=== PATIENT | female | born 1955 | race Caucasian/White ===

== ENCOUNTER → 2019-12-15 13:23 | Outpatient (CLI) | payer OTHER, SELFPAY ==
--- NOTE | ~2019-12-15 | MR_ITS ---
EXAMINATION: MR shoulder LT w con DATE: 12/15/2019 16:10 INDICATION: Rotator cuff syndrome presenting with left shoulder pain and limited range of motion. TECHNIQUE: Magnetic resonance imaging (MRI) of the left shoulder was performed following intra-artic ular gadolinium contrast injection and without intravenous contrast. Details of the glenohumeral join t injection have been dictated separately. Sequences included axial T2-weighted FS FSE, axial T1-celsa ghted FS FSE, coronal oblique T1-weighted FS FSE, coronal oblique T2-weighted FSE, sagittal T2-weight ed FS FSE, sagittal T1-weighted FSE, and ABER (abduction external rotation) T1-weighted FS FSE. COMPARISON: None. FINDINGS: Coracoacromial arch: The acromion undersurface is curved in morphology (type II). Small anterior subacromial spur at the a cromial attachment of the coracoacromial ligament which is mildly thickened at its acromial attachmen t. Mild acromioclavicular osteoarthritis. Rotator cuff: Complete full-thickness tear of the supraspinatus and infraspinatus tendons. The tear measures approx imately 4 cm AP along the superior and middle facet footplates. A small portion of the posterior infr aspinatus tendon remains attached to the footplate. 1.8 cm maximal medial retraction of the tear jontahan in which is positioned at the level of the apex of the humeral head. Mild tendinopathy of the distal 1.5 cm of the retracted supraspinatus tear margin. Moderate to severe tendinopathy with longitudinal split tear extending up to 3.5 cm medially from the infraspinatus tear margin. The teres minor tendon is normal. Mild subscapularis tendinopathy without discrete tear or there is relatively mild fatty a trophy of the supraspinatus and infraspinatus muscle bellies. Biceps tendon and glenoid labrum and glenohumeral cartilage: Complete tear of the long head biceps tendon with lax appearance to the intra-articular portion of th e tendon and with retraction of the distal portion of the tendon to the level of the inferior aspect of the intertubercular groove. Small tear at the posterior superior aspect of the glenoid labrum. The re is deep chondral ulceration with mild underlying subarticular cystic change at the inferior aspect of the glenoid. A severe partial thickness cartilage loss along the inferomedial aspect of the humer al head. Fluid: There is extension of the injected contrast through the full-thickness rotator cuff tear into the sub acromial/subdeltoid bursa. No loose osteochondral bodies. Bones: Normal marrow signal with no edema, fracture or abnormal marrow replacing process. Mild cystic and al jamie the middle facet of the greater tuberosity. IMPRESSION: 1. Complete full-thickness tear of the supraspinatus and infraspinatus tendons. 2. Small tear at the posterior superior glenoid labrum. 3. Mild glenohumeral osteoarthritis with small regions of high-grade chondromalacia at the inferior g lenoid. 4. Complete tear near the junction of the intra-articular and extra articular portions of the long he ad biceps tendon. Reviewed, dictated and finalized at location A. 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 Complete full-thickness tear of the supraspinatus and infraspinatus tendons. 2. Small tear at the posterior superior glenoid labrum. 3. Mild glenohumeral osteoarthritis with small regions of high-grade chondromal acia at the inferior glenoid. 4. Complete tear near the junction of the intra-articular and extra articular p ortions of the long head biceps tendon.
--- NOTE | ~2019-12-15 | XR_ITS ---
XR fl inj shoulder LT - MR/CT DATE: 12/15/2019 14:42 INDICATION: Intra-articular injection 4 MRI left shoulder examination. Left shoulder pain. Rotator cu ff and labral abnormalities. TECHNIQUE: The purpose of the procedure, technique and potential competitions were discussed with the patient. The patient verbalized understanding and gave consent. Timeout procedure confirmed proper patient and proper extremity. With the patient recumbent on the fluoroscopy table, the appropriate site at the anterior left should er for percutaneous access to the glenohumeral joint was marked using fluoroscopic guidance. The skin was prepared with sterile Betadine solution. Sterile drape was applied. 1% lidocaine local anestheti c was administered to the skin and underlying subcutaneous tissues. A 20-gauge spinal needle was intr oduced into the gleno humeral joint space using fluoroscopic guidance. 12 cc of contrast material (Mu ltiHance and Omnipaque 240) and lidocaine were injected into the joint uneventfully under fluoroscopi c visualization, confirming intra-articular position of the injection. A spot fluoroscopic exposure w as made to confirm the intra-articular position of the contrast material. The patient was very cooperative and tolerated procedure without complaint or apparent complication. IMPRESSION: Fluoroscopically guided percutaneous intra-articular injection of MultiHance contrast mat erial for MRI left shoulder examination Reviewed, dictated and finalized at Location A. Reviewed, dictated and finalized at location B. 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
== END ==
PROVIDERS: PCP Family Medicine; Visit Provider Chiropractor
DX: S43.492A Other sprain of left shoulder joint, initial encounter (principal); X58.XXXA Exposure to other specified factors, initial encounter; M19.012 Primary osteoarthritis, left shoulder
CPT/HCPCS: 23350; 73222; 77002; A9577; Q9966

== ENCOUNTER 2021-09-11 10:39 | Outpatient (CLI) | payer MEDICARE, SELFPAY ==
--- NOTE | ~2021-09-11 | XR_ITS ---
EXAMINATION: XR knee LT min 4V DATE: 09/11/2021 11:12 INDICATION: Left knee pain TECHNIQUE: Four views of the left knee were obtained. COMPARISON: None. FINDINGS: Alignment is normal. No fracture or osteochondral lesion. There is tricompartmental osteoar thritis, severe in the medial compartment. There is chondrocalcinosis of the menisci. No joint effusi on/synovitis. Calcified atherosclerosis is noted. IMPRESSION: 1. Tricompartmental osteoarthritis, severe in the medial compartment. Reviewed, dictated and finalized at location B.
== END 2021-09-11 10:40 | disposition home or self-care (01) ==
LOC: ANHIMG 10:48
PROVIDERS: PCP Family Medicine; Visit Provider Family Medicine
DX: M17.12 Unilateral primary osteoarthritis, left knee (principal)
CPT/HCPCS: 73564

== ENCOUNTER 2023-05-26 15:36 | Outpatient (CLI) | payer MEDICARE, SELFPAY ==
--- NOTE | ~2023-05-26 | MM_ITS ---
EXAMINATION: MM screening rustam BI w benjamin HISTORY: Screening TECHNIQUE: Craniocaudal and mediolateral oblique 3-D tomosynthesis images were obtained and synthetic 2-D images were generated. CAD analysis was submitted and interpreted. COMPARISON: No prior mammogram is available for comparison at this institution. BREAST PARENCHYMAL COMPOSITION: There are scattered areas of fibroglandular density. FINDINGS: There are multiple nodular asymmetries of the right breast. There is no evidence of suspici ous mass, calcification, or architectural distortion to suggest malignancy in the left breast. IMPRESSION: 1. Nodular asymmetries of the right breast. 2. Additional mammographic views and possible breast ultrasound are recommended. BI-RADS Category 0: Incomplete: Needs additional imaging evaluation. Reviewed, dictated and finalized at location A. IMPRESSION: 1. Nodular asymmetries of the right breast. 2. Additional mammographic views and possible breast ultrasound are recommended . BI-RADS Category 0: Incomplete: Needs additional imaging evaluation.
== END 2023-05-26 15:37 | disposition home or self-care (01) ==
PROVIDERS: PCP Family Medicine; Visit Provider Family Medicine
DX: Z12.31 Encounter for screening mammogram for malignant neoplasm of breast (principal); R92.8 Other abnormal and inconclusive findings on diagnostic imaging of breast
CPT/HCPCS: 77063; 77067

== ENCOUNTER 2023-09-03 01:35 | Day surgery (SDC) | payer MEDICARE, SELFPAY ==
[2023-08-21 13:07] VITALS: BMI 48.2
--- NOTE | 2023-09-02 15:17 | PM.HPGS ---
History of Present Illness History of Present Illness Consent: Risks, benefits, and alternatives have been discussed and questions answered. Patient agrees to proceed with procedure. Chief complaint: Personal hx of colonic polyps Narrative: Leslie Reina is a 68 year old female Referred for colon cancer screening. Review of Systems Review of Systems: All systems reviewed & are unremarkable except as noted in HPI and below PMFSH Past Medical History Medical History Abnormal fasting glucose Glucose 99 with hemoglobin A1c 5.8 on 04/18/2022. Fasting glucose 88 with hemoglobin A1c 5.6 on 04/30/2023. Abnormal mammogram of right breast (05/26/23) multiple nodular densities right breast on mammogram 05/26/2023. Actinic keratosis (~08/2023) treated by Dermatology August,. Acute non-recurrent maxillary sinusitis Benign paroxysmal positional vertigo due to bilateral vestibular disorder Body mass index (bmi) 60.0-69.9, adult (05/03/19) Body mass index (BMI) of 50.0 to 59.9 in adult Breast cancer screening by mammogram Candidiasis, intertrigo Chronic left shoulder pain Chronic neck pain Chronic pain of left knee (~07/2021) COVID-19 (~08/2020) COVID-19 (10/31/21) 2nd episode of COVID with positive test on 11/01/2021 Degenerative arthritis of knee, bilateral Elevated liver enzymes GGT 54, AST 41, ALT 49 on 04/18/2022. GGT elevated at 81 with AST 48 and ALT 65 on 04/11/2021. GGT 54, AST 41, ALT 49 on 04/18/2022. GGT 31, AST 55, ALT 54 on 04/30/2023. Fatty liver Insomnia Morbid obesity with BMI of 45.0-49.9, adult Morbid obesity with BMI of 50.0-59.9, adult Neoplasm of skin 2 crusted inflamed skin lesions face left christianity and right maxillary Osteoarthritis of left knee Personal history of colonic polyps Restless legs syndrome Situational depression UTI (urinary tract infection) Welcome to Medicare preventive visit Surgical History Surgical History History of oral surgery History of recent surgery Family History Family History Grandparent Diabetes mellitus, Onset Age: 67 Acute myocardial infarction, Onset Age: 58 Cerebrovascular accident, Onset Age: 68 Carcinoma of colon Family history of Alzheimer's disease, Onset Age: 95 Mother Hypertension, Onset Age: 79 Family history of chronic obstructive pulmonary disease Family history of dementia Social History Social History Smoking status: Never smoker Alcohol intake: never Substance use: never Substance use type: does not use Lack of Transportation: No Lack of Food: Never True Current Housing: I Have Housing Concerned About Future Housing: No Difficulty Paying Gas/Electric Bills: No Difficulty Paying for Meds: No Currently Unemployed: No Education: Master's Degree or Higher Difficulty w/ Childcare or Family Care: No Living arrangements: with family Occupation/Education: occupation 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- [employer] Gender identity (if verbalized by the patient): Female Meds Home Medications and Allergies Home Medications Medication Instructions Recorded Confirmed Type cholecalciferol (vitamin D3) 25 25 mcg PO DAILY 10/01/21 09/03/23 History mcg (1,000 unit) capsule glucosamine 500 mg-msm 100 mg-vit 1 cap PO DAILY 10/01/21 09/03/23 History C 20 sy-vullz-lccx-primrose capsule (Joint Support Complex) vitamin B complex (B 1 tablet PO DAILY 10/01/21 09/03/23 History Complex-Vitamin B12 tablet) naproxen sodium 220 mg capsule 220 mg PO BID PRN Pain 08/20/22 09/03/23 History (Aleve) tumeric 100 mg-keith 150 mg-olive 1 cap PO DAILY 12/31/22 08/21/23 History 50 mg-oreg 150 mg-caprylate capsule Allergies Allergy/AdvReac Type S
[2023-09-03 06:46] VITALS: BP 151/84; PULSE 72; RESP 20; TEMP 36.4; O2SAT 97; BMI 48.2
[2023-09-03] MEDS: LACTATED RINGERS 1,000 ML 150 ML IV CONT (06:49)
--- NOTE | 2023-09-03 07:29 | WPDANESEPPF ---
Anes - Initial Pre Proc Eval Procedure: Operation Date: 09/03/23 08:00 Proposed Procedures p Colonoscopy - Jonathan Newell MD Date/Time: 09/03/23 07:29 Surgeon: Jonathan Newell MD Pre Op Diagnosis: Personal hx of colonic polyps Patient Data Age: 68 Gender: F Height: 1.55 m Weight: 115.8 kg Last Vital Signs Temp 97.6 F 09/03/23 06:46 Pulse 72 09/03/23 06:46 Resp 20 09/03/23 06:46 BP 151/84 H 09/03/23 06:46 Pulse Ox 97 09/03/23 06:46 Allergies Allergy/AdvReac Type Severity Reaction Status Date / Time No Known Allergies Allergy Verified 09/03/23 06:43 Home Medications Medication Instructions Recorded Confirmed Type cholecalciferol (vitamin D3) 25 25 mcg PO DAILY 10/01/21 09/03/23 History mcg (1,000 unit) capsule glucosamine 500 mg-msm 100 mg-vit 1 cap PO DAILY 10/01/21 09/03/23 History C 20 kh-kxwuc-zlyg-primrose capsule (Joint Support Complex) vitamin B complex (B 1 tablet PO DAILY 10/01/21 09/03/23 History Complex-Vitamin B12 tablet) naproxen sodium 220 mg capsule 220 mg PO BID PRN Pain 08/20/22 09/03/23 History (Aleve) tumeric 100 mg-keith 150 mg-olive 1 cap PO DAILY 12/31/22 08/21/23 History 50 mg-oreg 150 mg-caprylate capsule Patient hx anesthesia problems: none Family hx anesthesia problems: none Results Review: All pre-operative results and documents have been reviewed as part of the pre-operative evaluation. [facility] Past Medical History Medical History (Updated 08/24/23 @ 10:38 by Brown Madrigal MD) Abnormal fasting glucose Glucose 99 with hemoglobin A1c 5.8 on 04/18/2022. Fasting glucose 88 with hemoglobin A1c 5.6 on 04/30/2023. Abnormal mammogram of right breast (05/26/23) multiple nodular densities right breast on mammogram 05/26/2023. Actinic keratosis (~08/2023) treated by Dermatology August,. Acute non-recurrent maxillary sinusitis Benign paroxysmal positional vertigo due to bilateral vestibular disorder Body mass index (bmi) 60.0-69.9, adult (05/03/19) Body mass index (BMI) of 50.0 to 59.9 in adult Breast cancer screening by mammogram Candidiasis, intertrigo Chronic left shoulder pain Chronic neck pain Chronic pain of left knee (~07/2021) COVID-19 (~08/2020) COVID-19 (10/31/21) 2nd episode of COVID with positive test on 11/01/2021 Degenerative arthritis of knee, bilateral Elevated liver enzymes GGT 54, AST 41, ALT 49 on 04/18/2022. GGT elevated at 81 with AST 48 and ALT 65 on 04/11/2021. GGT 54, AST 41, ALT 49 on 04/18/2022. GGT 31, AST 55, ALT 54 on 04/30/2023. Fatty liver Insomnia Morbid obesity with BMI of 45.0-49.9, adult Morbid obesity with BMI of 50.0-59.9, adult Neoplasm of skin 2 crusted inflamed skin lesions face left restorationist and right maxillary Osteoarthritis of left knee Personal history of colonic polyps Restless legs syndrome Situational depression UTI (urinary tract infection) Welcome to Medicare preventive visit Surgical History Surgical History History of oral surgery History of recent surgery Family History Family History Grandparent Diabetes mellitus, Onset Age: 67 Acute myocardial infarction, Onset Age: 58 Cerebrovascular accident, Onset Age: 68 Carcinoma of colon Family history of Alzheimer's disease, Onset Age: 95 Mother Hypertension, Onset Age: 79 Family history of chronic obstructive pulmonary disease Family history of dementia Social History Social History Smoking status: Never smoker Alcohol intake: never Substance use: never Substance use type: does not use Lack of Transportation: No Lack of Food: Never True Current Housing: I Have Housing Concerned About Future Housing: No Difficulty Paying Gas/Electric Bills: No Difficulty Paying for Meds: No Currently Unemployed: No
[2023-09-03 07:53] VITALS: BP 93/56; PULSE 81; RESP 23; O2SAT 95
[2023-09-03 08:03] VITALS: BP 109/71; PULSE 79; RESP 37; O2SAT 98
[2023-09-03 08:13] VITALS: BP 114/63; PULSE 69; RESP 14; O2SAT 100
== END 2023-09-03 08:25 | disposition home or self-care (01) ==
PROVIDERS: PCP Family Medicine; Visit Provider Internal Medicine Gastroenterology
PROC: 0DJD8ZZ Inspection of Lower Intestinal Tract, Via Natural or Artificial Opening Endoscopic (ICD-10-PCS; CPT 45378; principal; 2023-09-03 08:00)
DX: Z12.11 Encounter for screening for malignant neoplasm of colon (principal); K57.30 Diverticulosis of large intestine without perforation or abscess without bleeding; Z86.010 Personal history of colon polyps; E66.01 Morbid (severe) obesity due to excess calories; Z68.42 Body mass index [BMI] 45.0-49.9, adult
CPT/HCPCS: G0105; J2704; J7120

== ENCOUNTER 2024-07-08 13:23 | Outpatient (CLI) | payer MEDICARE, SELFPAY ==
--- NOTE | 2024-07-08 14:36 | ECG_ITS ---
Test Date: 2024-07-08 14:57:02 Measurements Intervals Baxter Rate: 69 P: 37 WI: 161 QRS: 12 QRSD: 80 T: 42 QT: 390 QTc: 418 Interpretive Statements SINUS RHYTHM WITH MARKED SINUS ARRHYTHMIA No previous ECG available for comparison Electronically Signed On 07-09-2024 14:29:16 CDT by Vernon Swan M.D.
[2024-07-08 15:05] LABS: Basophils Absolute Auto 0.1 K/mm3 (0.0-0.1); Basophils Percent Auto 0.6 % (0.2-1.2); Eosinophils Absolute Auto 0.2 K/mm3 (0-0.3); Eosinophils Percent Auto 2.5 % (0-4.4); Hematocrit 41.8 % (37.0-47.0); Hemoglobin 14.1 g/dL (12.0-15.0); Immature Granulocyte Absolute 0.03 K/mm3 (0.00-0.031); Immature Granulocyte Percent A 0.4 % (0-0.5); Lymphocytes Absolute Auto 2.64 K/mm3 (0.9-3.2); Lymphocytes Percent Auto 32.9 % (18.3-44.2); Mean Corpuscular HGB Conc 33.7 g/dl (32-36); Mean Corpuscular Hemoglobin 31.5 pg (26-34); Mean Corpuscular Volume 93.5 fl (80-100); Mean Platelet Volume 11.2 fl (7.4-10.4); Monocytes Absolute Auto 0.6 K/mm3 (0.1-0.6); Monocytes Percent Auto 7.3 % (2.6-8.5); Neutrophils Absolute Auto 4.5 K/mm3 (1.3-6.7); Neutrophils Percent Auto 56.3 % (45.5-73.1); Platelet Count Result 163 k/mm3 (150-375); Red Blood Count 4.47 M/mm3 (4.2-5.4); Red Cell Distribution Width 12.2 % (11.5-14.5)
[2024-07-08 15:21] LABS: Albumin Level 4.3 g/dL (3.5-5.1); Anion Gap 9 mmol/L (4-12); Blood Urea Nitrogen 21 mg/dL (7-17); Calcium 9.8 mg/dL (8.4-10.2); Carbon Dioxide 27 mmol/L (22-30); Chloride 103 mmol/L (98-107); Estimated Glomerular Filt Rate > 60; Glucose 97 mg/dL (65-110); Potassium 4.4 mmol/L (3.4-5.0); Sodium 139 mmol/L (137-145)
[2024-07-08 15:44] LABS: Urine Cotinine NEGATIVE
== END 2024-07-08 13:24 | disposition home or self-care (01) ==
PROVIDERS: PCP Family Medicine; Visit Provider Orthopaedic Surgery
DX: Z01.818 Encounter for other preprocedural examination (principal); M17.0 Bilateral primary osteoarthritis of knee; I49.8 Other specified cardiac arrhythmias
CPT/HCPCS: 80048; 80307; 82040; 85025; 87081; 93005

== ENCOUNTER 2024-07-28 01:38 | Day surgery (SDC) | payer MEDICARE, SELFPAY ==
[2024-07-08 13:50] VITALS: BP 106/66; PULSE 74; RESP 16; TEMP 37.3; O2SAT 100; BMI 39.1
--- NOTE | 2024-07-08 14:07 | PC.NURSE ---
Report to the Outpatient Waiting Room, entrance under the green pavilion located off [facility], at time _09:30am___ on date _07/28/24. Planned Procedure Time: __11:30am .? Time changes happen often and if your time is changed the preop area will call you the afternoon before. - You and your visitor will be asked to self-screen and do not enter if you have any COVID symptoms. Please call surgeon if you need to reschedule. - A mask is optional within the hospital at this time. Patients may have clear liquids (water, carbonated beverages, clear teas, apple juice) until 3 hours prior to surgery ( 0830am) with a maximum of 20 ounces. - No food from midnight until time of surgery and no smoking Take only the following medications with a SIP of water on the morning of surgery: _ None__Tyelnol if needed for pain DO NOT STOP ANY OF YOUR OTHER PRESCRIPTION MEDICATIONS PRIOR TO SURGERY EXCEPT THE FOLLOWING Medications to discontinue per physician Hold Aleve for 7 days prior Date to take last dose___07/20/24 Hold Ozempic for 2 weeks prior to surgery per PCP instructions you already recieved- Last dose to take 07/13/24. Hold all other vitamins,supplements, probiotics and herbs 3 days prior to surgery per Anesthesia. Date to take last dose 07/24/24. Please no make-up, nail mongolian, hairspray, perfume, deodorant, or body powder the day of surgery.? No jewelry (including any body piercings) or valuables the day of surgery, leave them at home.? Please take a shower or bath the night before, or the morning of, surgery with an antibacterial soap.? Wear comfortable, loose fitting clothing.? Children are encouraged to wear pajamas. - Jewelry must be removed prior to entering the operating room.? Rings and piercings that are not removed may be cut off. - The hospital will not accept responsibility for valuables.? - Please leave all valuables, including medications, at home the day of surgery. If you are going home after surgery, a licensed vacuum truck driver must drive you home.? - NO public transportation without another adult if you receive anesthesia. - We recommend that an adult stay with you for 24 hours following discharge. - We also recommend that you do not drive, make important decision, drink alcoholic beverages, or take any drugs that were not prescribed by your health care provider for at least 24 hours after your discharge time. Follow any additional instructions given to you from your surgeon. Telephone instructions given to __patient____and asked if any additional questions and then verbalized understanding. Patient advised to call surgeon office or pre surgery nurse liaison [phone] if any additional questions.
--- NOTE | 2024-07-27 12:51 | PM.IMHP ---
H&P: HPI History of Present Illness Date/Time: 07/27/24 12:51 Chief Complaint: Bilateral knee DJD Narrative: 69-year-old female patient of Dr. Madrigal who presents today for a left total knee arthroplasty and cortisone injection in the right knee. Patient has [id number] medial compartment osteoarthritis left knee. She also has moderate to moderately severe medial compartment osteoarthritis in the right. Her left knee continues to be very symptomatic and painful. She has had cortisone injections in the past the last 1 was March 15 of this year which only gave her minimal improvement of her symptoms. She has been using kiro-cmr-glftnua naproxen as well. Patient is having continued severe pain in the left knee. She feels this point she is ready proceed with total knee arthroplasty. Review of Systems Review of Systems: All systems reviewed & are unremarkable except as noted in HPI and below PMFSH Past Medical History Medical History (Updated 06/30/24 @ 12:08 by Brown Madrigal MD) Abnormal fasting glucose Glucose 99 with hemoglobin A1c 5.8 on 04/18/2022. Fasting glucose 88 with hemoglobin A1c 5.6 on 04/30/2023. Abnormal mammogram of right breast (05/26/23) multiple nodular densities right breast on mammogram 05/26/2023. Actinic keratosis (~08/2023) treated by Dermatology August,. Acute non-recurrent maxillary sinusitis At low risk for fall Benign paroxysmal positional vertigo due to bilateral vestibular disorder BMI 39.0-39.9,adult Body mass index (bmi) 60.0-69.9, adult (05/03/19) Body mass index (BMI) of 50.0 to 59.9 in adult Breast cancer screening by mammogram Candidiasis (~06/2024) abdominal pannus and under breast on left Candidiasis, intertrigo Chronic left shoulder pain Chronic neck pain Chronic pain of left knee (~07/2021) COVID-19 (~08/2020) COVID-19 (10/31/21) 2nd episode of COVID with positive test on 11/01/2021 Degenerative arthritis of knee, bilateral Elevated liver enzymes GGT 54, AST 41, ALT 49 on 04/18/2022. GGT elevated at 81 with AST 48 and ALT 65 on 04/11/2021. GGT 54, AST 41, ALT 49 on 04/18/2022. GGT 31, AST 55, ALT 54 on 04/30/2023. Fatty liver History of kidney stones Insomnia Morbid obesity Morbid obesity with BMI of 40.0-44.9, adult Morbid obesity with BMI of 45.0-49.9, adult Morbid obesity with BMI of 50.0-59.9, adult Neoplasm of skin 2 crusted inflamed skin lesions face left confucianist and right maxillary Obesity (BMI 30-39.9) Osteoarthritis of left knee Personal history of colonic polyps Restless legs syndrome Situational depression UTI (urinary tract infection) Welcome to Medicare preventive visit Surgical History Surgical History History of delivery History of lumbar surgery 1986 History of oral surgery History of recent surgery History of rotator cuff surgery 2019 Family History Family History (Updated 06/17/24 @ 07:28 by LUKE Reese) Grandparent Diabetes mellitus, Onset Age: 67 Acute myocardial infarction, Onset Age: 58 Cerebrovascular accident, Onset Age: 68 Carcinoma of colon Family history of Alzheimer's disease, Onset Age: 95 Mother Hypertension, Onset Age: 79 Family history of chronic obstructive pulmonary disease Family history of dementia Diabetes mellitus Father No problems noted. Social History Social History Smoking status: Never smoker Second hand tobacco smoke exposure: No Alcohol intake: never Substance use: never Substance use type: does not use Do You Feel Safe in your Home?: Yes Lack of Transportation: No Lack of Food: Never True Current Housing: I Have Housing Concerned About Future Housing: No Difficulty Paying Gas/Electric Bills: No Difficulty Paying for Meds: No Currently Unemployed: No Education: Master's Degree or Higher Diffic
[2024-07-28] VITALS (13 sets, daily range): BP systolic 110–131; BP diastolic 66–79; PULSE 70–85; RESP 12–18; TEMP 36.3–37.1; O2SAT 93–100
--- NOTE | ~2024-07-28 | XR_ITS ---
[id number] Ordering provider: Lanre Ashley MD History: . POST-OP, LEFT TKA . Comparison: None. FINDINGS: BONES: No acute fracture or dislocation. JOINT SPACES: Total knee arthroplasty. SOFT TISSUES: Postoperative changes. IMPRESSION: No acute osseous abnormality left knee. Total knee arthroplasty. Reviewed, dictated and finalized at location A.
[2024-07-28] MEDS: VANCOMYCIN 1,500 MG/NS 500 ML BAG 250 MG IVPB (10:14)
[2024-07-28] MEDS: LACTATED RINGERS 1,000 ML 30 ML IV CONT ×2 (10:30→15:08)
[2024-07-28] MEDS: TRANEXAMIC ACID 1,000MG/ISO100 1,000 MG/100 ML BAG 200 MG IVPB (11:00)
--- NOTE | 2024-07-28 11:09 | WPDHPUPDATE1 ---
History and Physical Update Update Date/Time: 07/28/24 11:09 History and Physical has been reviewed, including an updated exam of the patient. There are NO changes in the patient's condition. Risks, benefits, and alternatives have been discussed and questions answered. Patient agrees to proceed with procedure.
--- NOTE | 2024-07-28 11:10 | WPDANESEPPF ---
Anes - Initial Pre Proc Eval Procedure: Operation Date: 07/28/24 11:30 Proposed Procedures p Left Total Knee Arthroplasty, Cortisone Injection Right Knee - Lanre Ashley MD Date/Time: 07/28/24 11:10 Surgeon: Lanre Ashley MD Pre Op Diagnosis: oa bilateral knees Patient Data Age: 69 Gender: F Height: 1.58 m Weight: 96.2 kg Last Vital Signs Temp 36.3 C L 07/28/24 10:21 Pulse 75 07/28/24 10:21 Resp 16 07/28/24 10:21 BP 110/67 07/28/24 10:21 Pulse Ox 99 07/28/24 10:21 O2 Del Method Room Air 07/28/24 10:21 Allergies Allergy/AdvReac Type Severity Reaction Status Date / Time No Known Allergies Allergy Verified 07/28/24 09:37 Home Medications Medication Instructions Recorded Confirmed Type glucosamine 500 mg-msm 100 mg-vit 1 cap PO DAILY 10/01/21 07/28/24 History C 20 gj-qlmbc-[id number]-primrose capsule (Joint Support Complex) vitamin B complex (B 1 tablet PO DAILY 10/01/21 07/28/24 History Complex-Vitamin B12 tablet) naproxen sodium 220 mg capsule 440 mg PO BID PRN Pain 08/20/22 07/28/24 History (Aleve) cholecalciferol (vitamin D3) 25 1,000 unit PO DAILY 11/18/23 07/28/24 History mcg (1,000 unit) capsule nystatin 100,000 unit/gram topical 1 applic topical BID #60 grams 06/30/24 07/28/24 Rx powder biotin 5,000 mcg chewable tablet 5,000 mcg PO DAILY 07/08/24 07/28/24 History Patient hx anesthesia problems: none Family hx anesthesia problems: none Results Review: All pre-operative results and documents have been reviewed as part of the pre-operative evaluation. [facility] Past Medical History Medical History Abnormal fasting glucose Glucose 99 with hemoglobin A1c 5.8 on 04/18/2022. Fasting glucose 88 with hemoglobin A1c 5.6 on 04/30/2023. Abnormal mammogram of right breast (05/26/23) multiple nodular densities right breast on mammogram 05/26/2023. Actinic keratosis (~08/2023) treated by Dermatology August,. Acute non-recurrent maxillary sinusitis At low risk for fall Benign paroxysmal positional vertigo due to bilateral vestibular disorder BMI 39.0-39.9,adult Body mass index (bmi) 60.0-69.9, adult (05/03/19) Body mass index (BMI) of 50.0 to 59.9 in adult Breast cancer screening by mammogram Candidiasis (~06/2024) abdominal pannus and under breast on left Candidiasis, intertrigo Chronic left shoulder pain Chronic neck pain Chronic pain of left knee (~07/2021) COVID-19 (~08/2020) COVID-19 (10/31/21) 2nd episode of COVID with positive test on 11/01/2021 Degenerative arthritis of knee, bilateral Elevated liver enzymes GGT 54, AST 41, ALT 49 on 04/18/2022. GGT elevated at 81 with AST 48 and ALT 65 on 04/11/2021. GGT 54, AST 41, ALT 49 on 04/18/2022. GGT 31, AST 55, ALT 54 on 04/30/2023. Fatty liver History of kidney stones Insomnia Morbid obesity Morbid obesity with BMI of 40.0-44.9, adult Morbid obesity with BMI of 45.0-49.9, adult Morbid obesity with BMI of 50.0-59.9, adult Neoplasm of skin 2 crusted inflamed skin lesions face left adventist and right maxillary Obesity (BMI 30-39.9) Osteoarthritis of left knee Personal history of colonic polyps Restless legs syndrome Situational depression UTI (urinary tract infection) Welcome to Medicare preventive visit Surgical History Surgical History History of delivery History of lumbar surgery 1986 History of oral surgery History of recent surgery History of rotator cuff surgery 2019 Family History Family History (Updated 06/17/24 @ 07:28 by LUKE Reese) Grandparent Diabetes mellitus, Onset Age: 67 Acute myocardial infarction, Onset Age: 58 Cerebrovascular accident, Onset Age: 68 Carcinoma of colon Family history of Alzheimer's disease, Onset Age: 95 Mother Hypertension, Onset Age: 79 Family history of chronic obstructive pulmonary dise
[2024-07-28] MEDS: ceFAZolin 2 GM/D5W 50 ML 2 GM/50 ML BAG IVPB ×2 (11:48→20:16)
[2024-07-28] MEDS: SODIUM CHLORIDE 0.9% IV 37.7 ML, MORPHINE SULFATE INJ (*CRX) 2 MG, ROPivacaine HCL 1% 2... INFILTRATE (12:35)
[2024-07-28] MEDS: LIDOCAINE HCL 1% LOCAL INJ 10 ML VIAL 3 ML INFILTRATE (12:37)
[2024-07-28] MEDS: methylPREDNISolone ACETATE 80 MG/ML VIAL IM (12:38)
[2024-07-28] MEDS: ceFAZolin SODIUM 1 GM VIAL 3 GM (12:38)
[2024-07-28] MEDS: GENTAMICIN BONE CEMENT REFOBACIN 1 EACH TOPICAL (13:59)
[2024-07-28] MEDS: ceFAZolin SODIUM 1 GM VIAL 2 GM IV PUSH (14:09)
[2024-07-28] MEDS: TRANEXAMIC ACID 1,000 MG/10 ML AMPUL 1000 MG IV PUSH (14:09)
[2024-07-28] MEDS: KETOROLAC 15 MG/ML VIAL (*BKC) IV PUSH ×2 (15:00→17:57)
--- NOTE | 2024-07-28 15:11 | W.PM.PROC2 ---
Procedure Note - Detailed Date of Procedure 07/28/24 Pre-op Diagnosis oa bilateral knees, obesity BMI of 38.5 Post-op Diagnosis Same Procedure Performed Cortisone injection right knee, left total knee arthroplasty Surgeon Lanre Ashley MD Registrar Assistant Lewis Anesthesia General Description of Procedure Patient was brought to the operating room and general anesthesia was administered. She received 2 g of Ancef weight based vancomycin and 1 g of tranexamic acid preoperatively. The right knee was prepped with ChloraPrep and 80 mg Depo-Medrol 3 cc 1% lidocaine injected without difficulty. The left knee was prepped draped usual fashion. She had under anesthesia about a 7 degree flexion contracture her flexion was better passively under anesthesia to about 120. There is extra difficulty with the procedure due to her severe obesity which added approximately 25 minutes to the procedure. The limb was exsanguinated tourniquet elevated to 300 mmHg. A 7 in longitudinal midline incision was used and a vastus medialis splitting approach utilized bleeding the vastus medialis at the superior pole the patella. Infrapatellar fat pad was partially excised quadriceps synovectomy carried out. The patella measured 20 mm in thickness and was small.. There was moderate chondromalacia but no deformity and I thought it was most appropriate for non resurfacing in this patient. A conservative lateral facetectomy was performed. A guide delfino was inserted on femoral canal after aspiration of canal contents using the 5 degree valgus cutting bushing 9 mm of bone removed the distal femur. Next the tibial plateau was cut. We started with a skim cut off the low point of the medial tibial plateau. Meniscal remnants were excised the PCL recessed. We could see that our flexion gap was inadequate and additional 3 mm of bone was removed. This allowed us to insert the 8 mm spacer medially and 11 mm laterally. Femoral sizing guide was applied to the femur set at 4? of external rotation which matched Whitesides line. Posterior referencing pinholes were placed in the size 62.5 cutting block applied AP and chamfer cuts were made. The with of the 62.5 was about 1/2 mm wider than the with at the distal condyles. The 67 with 10 CR insert was placed in flexion but it was a bit snug and I could tell we would need a little bit more bone off the tibial plateau so we again removed about 1/2-2 mm more tibial plateau. We confirmed that we were perpendicular to the axis of the tibia on both planes. A perfectly flat cut surface was conferred. We sized to a 67 which fit line to line anteromedial to posterolateral at proper rotation and this was punched. Bone quality was excellent both in the femur and tibia. We trialed with the 10 and we had appropriate balance at 90? of flexion with 1 mm medial and lateral opening with valgus and varus stress about 2-3 mm of anterior posterior drawer. It was tight medially and laterally in extension lacking a couple of degrees. At this time we downsized the femur by applying the size 60 cutting block and the anterior flange and chamfer cuts revisited and with the size 65 femur trial we removed posterior femoral osteophyte which was fairly abundant both medially and laterally. We did not release posterior capsular at this time. On re trialing, the knee came out to full extension with 1 mm of medial and lateral opening in full extension negative bounce. There was central patellar tracking throughout range of motion and excellent anterior posterior stability at 90?. Winters flexion was to 125. Passive flexion 135 with no lift-off. Satisfied with this we re-exsanguinated the limb as the tourniquet had been let down earlier at 90 minutes the limb was re-exsanguinated and tourniquet elevated again to 300 mmHg. Lug holes were drilled in the femur. Step drill was used to make multiple perforations in tibial plateau and distal femur the bony surfaces thoroughly irrigate
--- NOTE | 2024-07-28 15:14 | PM.OP ---
Procedure Note - Brief Procedure Note - Brief Date of procedure: 07/28/24 oa bilateral knees Procedure performed: Left total knee arthroplasty Surgeon: MANFRED Funes Findings: 69-year-old female underwent left total knee arthroplasty on 07/28. I was involved in the procedure including positioning the patient on the OR table in 1st assisting through the time surgery. Total time spent was 3 hours
[2024-07-28] MEDS: fentaNYL CITRATE INJ (*CRX) 100 MCG/2 ML VIAL 25 MCG IV PUSH ×6 (15:42→16:24)
--- NOTE | 2024-07-28 16:50 | ADMGEN ---
This patient, Leslie Reina, was admitted to 2 Medical Room 254-01. Patient/family oriented to hospital policies and general routines including ID bracelet, bed and alarms, visiting hours, pain management, procedures, bathroom and other care routines, personal items, smoking policy, room service/diet, and visiting hours. Information on how to activate the Rapid Response Team has been discussed. Patient/Family are encouraged to report perceived risks to care and to ask questions if they do not understand what they are told or what they should do.
[2024-07-28] MEDS: SENNA/DOCUSATE SODIUM TABLET 2 TAB PO (18:00)
[2024-07-28] MEDS: ACETAMINOPHEN 325 MG TABLET 650 MG PO ×2 (18:00→20:46)
[2024-07-28] MEDS: oxyCODONE HCL (*CRX) 5 MG TAB IR PO ×2 (18:00→20:46)
--- NOTE | 2024-07-28 18:17 | PM.IMCN ---
Assessment and Plan Assessment and plan (1) Osteoarthritis of left knee: Qualifiers: Osteoarthritis type: unspecified Qualified Code(s): M17.12 - Unilateral primary osteoarthritis, left knee Code(s): M17.12 - Unilateral primary osteoarthritis, left knee Status: Chronic Assessment and Plan: Underwent a total left knee arthroplasty and steroid injection of the right knee on 07/28/2024. - primary management through the orthopedic team - ambulate with assistance and up to chair - use IS - neurovasc checks - see order for intervals - SCDs - analgesics and antiemetics p.r.n. - monitor labs in AM - CBC and BMP - bowel regimen: docusate/senna, polyethylene glycol - PT/OT (2) EAGLE on CPAP: Code(s): G47.33 - Obstructive sleep apnea (adult) (pediatric); Z99.89 - Dependence on other enabling machines and devices Status: Acute Assessment and Plan: - continue home CPAP Plan Diet: Regular GI Prophylaxis: Famotidine p.o. b.i.d. DVT Prophylaxis: SCDs, start Eliquis on 07/29 Lines: Peripheral Code Status: Full code HPI Date of Consult Consult date: 07/28/24 Requesting Physician: Lanre Ashley MD Primary Care Provider: Bronw Madrigal MD Consult Narrative Reason for consult: Medical Management Narrative: Leslie Reina is a 69 year old female with PMH of BPV, fatty liver, kidney stones, morbid obesity, osteoarthritis, RLS, and situational depression presents here for surgical management of her left knee pain. The patient presents here for a left total knee arthroplasty. She reports she has had ongoing pain to bilateral knees for the past 2-3 years. Imaging has shown keol-vq-mdkh medial compartment osteoarthritis of the left knee. She has previously failed conservative measures including vapv-fen-gkwdhzd naproxen, weight loss (100 lbs), and cortisone injections. The patient's last cortisone injection in her left knee was 03/15/2024. She reports minimal improvement in her pain and only offered short period of partial relief. Due to the severity of the pain she elected to move forward with surgery. The patient underwent a total left knee arthroplasty today, 07/28. Postoperatively she is reporting improvement in her knee pain, mild discomfort in her left thigh, and mild nausea without vomiting. N/V has subsided. Denies any recent changes to her medical history or medications. Preop VS: 99.1? F, HR 74, RR 16, 106/66, and 100% on RA. Preop workup: No leukocytosis, no anemia, no significant electrolyte derangements, creatinine 0.8 and GFR >60, A1c 5.4%. Review of Systems Review of Systems: All systems reviewed & are unremarkable except as noted in HPI and below PMFSH Past Medical History Medical History Abnormal fasting glucose Glucose 99 with hemoglobin A1c 5.8 on 04/18/2022. Fasting glucose 88 with hemoglobin A1c 5.6 on 04/30/2023. Abnormal mammogram of right breast (05/26/23) multiple nodular densities right breast on mammogram 05/26/2023. Actinic keratosis (~08/2023) treated by Dermatology August,. Benign paroxysmal positional vertigo due to bilateral vestibular disorder Candidiasis (~06/2024) abdominal pannus and under breast on left Candidiasis, intertrigo Chronic left shoulder pain Chronic neck pain Chronic pain of left knee (~07/2021) COVID-19 (~08/2020) COVID-19 (10/31/21) 2nd episode of COVID with positive test on 11/01/2021 Degenerative arthritis of knee, bilateral Elevated liver enzymes GGT 54, AST 41, ALT 49 on 04/18/2022. GGT elevated at 81 with AST 48 and ALT 65 on 04/11/2021. GGT 54, AST 41, ALT 49 on 04/18/2022. GGT 31, AST 55, ALT 54 on 04/30/2023. Fatty liver History of kidney stones Insomnia Mixed hyperlipidemia Cholesterol 153, triglycerides 149, HDL 40, LDL 88 04/18/2022. Total cholesterol 213, triglycerides 175, HDL 34, LDL 148 with ratio 6.3 on 04/30/2023. Neoplas
[2024-07-28] MEDS: FAMOTIDINE 20 MG TABLET PO (20:46)
[2024-07-28] MEDS: VANCOMYCIN 1,000 MG/NS 250 ML 1,000 MG/250 ML BAG 250 MG IVPB (22:49)
[2024-07-29] MEDS: oxyCODONE HCL (*CRX) 5 MG TAB IR PO ×4 (00:32→12:30)
[2024-07-29] MEDS: ACETAMINOPHEN 325 MG TABLET 650 MG PO ×4 (00:32→12:29)
[2024-07-29] MEDS: KETOROLAC 15 MG/ML VIAL (*BKC) IV PUSH (00:33)
[2024-07-29 02:23] VITALS: BP 111/56; PULSE 79; RESP 18; TEMP 37.1; O2SAT 96
[2024-07-29] MEDS: ceFAZolin 2 GM/D5W 50 ML 2 GM/50 ML BAG IVPB ×2 (04:23→11:08)
[2024-07-29 05:33] LABS: Basophils Percent Auto 0.3 % (0.2-1.2); Hematocrit 36.1 % (37.0-47.0); Hemoglobin 11.9 g/dL (12.0-15.0); Immature Granulocyte Absolute 0.08 K/mm3 (0.00-0.031); Immature Granulocyte Percent A 0.7 % (0-0.5); Lymphocytes Absolute Auto 0.86 K/mm3 (0.9-3.2); Lymphocytes Percent Auto 7.2 % (18.3-44.2); Mean Corpuscular Hemoglobin 30.9 pg (26-34); Mean Corpuscular Volume 93.8 fl (80-100); Mean Platelet Volume 10.9 fl (7.4-10.4); Monocytes Absolute Auto 0.8 K/mm3 (0.1-0.6); Neutrophils Absolute Auto 10.1 K/mm3 (1.3-6.7); Neutrophils Percent Auto 84.8 % (45.5-73.1); Platelet Count Result 150 k/mm3 (150-375); Red Blood Count 3.85 M/mm3 (4.2-5.4); Red Cell Distribution Width 12.3 % (11.5-14.5); White Blood Count 11.9 K/mm3 (4.5-10.0)
[2024-07-29 05:45] LABS: Anion Gap 7 mmol/L (4-12); Blood Urea Nitrogen 17 mg/dL (7-17); Calcium 9.2 mg/dL (8.4-10.2); Carbon Dioxide 25 mmol/L (22-30); Chloride 101 mmol/L (98-107); Estimated CRCL calculation 72 ml/min; Estimated Glomerular Filt Rate > 60; Glucose 121 mg/dL (65-110); Potassium 4.2 mmol/L (3.4-5.0); Sodium 133 mmol/L (137-145)
[2024-07-29 05:57] VITALS: BP 110/51; PULSE 75; RESP 18; TEMP 36.9; O2SAT 97
[2024-07-29 06:03] VITALS: BP 110/51; PULSE 75; RESP 18; TEMP 36.9; O2SAT 97
--- NOTE | 2024-07-29 06:54 | PM.IMPN ---
Progress Note: A&P Assessment and Plan (1) Osteoarthritis of left knee: Qualifiers: Osteoarthritis type: unspecified Qualified Code(s): M17.12 - Unilateral primary osteoarthritis, left knee Code(s): M17.12 - Unilateral primary osteoarthritis, left knee Status: Chronic Assessment and Plan: Underwent a total left knee arthroplasty and steroid injection of the right knee on 07/28/[address] Saucedo. - primary management through the orthopedic team - ambulate with assistance and up to chair - use IS - neurovasc checks - see order for intervals - SCDs - analgesics and antiemetics p.r.n. - monitor labs in AM - CBC and BMP - bowel regimen: docusate/senna, polyethylene glycol - PT/OT: full weight bearing per ortho (2) EAGLE on CPAP: Code(s): G47.33 - Obstructive sleep apnea (adult) (pediatric); Z99.89 - Dependence on other enabling machines and devices Status: Acute Assessment and Plan: - continue home CPAP Plan Diet: Regular GI Prophylaxis: Famotidine p.o. b.i.d. DVT Prophylaxis: SCDs, start Eliquis on 07/29 Lines: Peripheral Code Status: Full code Subjective Date/time seen: 07/29/24 06:54 Interval history: Leslie Reina is a 69 year old female with PMH of BPV, fatty liver, kidney stones, morbid obesity, osteoarthritis, RLS, and situational depression presents here for surgical management of her left knee pain. Patient is pleasant sitting up in her chair doing stretches with PT. She states she is feeling well and will be getting discharged later this afternoon. Patient denies chest pain, shortness of breath, nausea/vomiting and abdominal pain. Review of Systems Review of Systems: All systems reviewed & are unremarkable except as noted in HPI and below Exam Narrative: AF HR 75 RR 18 SPO2 97 BP 110/51 General: female in no acute respiratory distress who is nontoxic appearing, sitting up in her chair. HEENT: Normocephalic. Atraumatic. No facial asymmetry. Chest: Lungs are clear to auscultation bilaterally. No wheezes or crackles. CV: Heart was regular rate and rhythm. S1-S2. No murmurs, gallops, or rubs. Abd: Abdomen was soft. Nontender. Nondistended. Positive bowel sounds. No organomegaly or masses. Ext: No clubbing, cyanosis. Mild edema to the left knee. Surgical dressing in place, clean/dry/intact. Bandage to right knee where injection was placed. 2+ DP pulses bilaterally. Objective Data Vital Signs Vital Signs: Vital Signs - 24 hr 07/28/24 10:21 07/28/24 15:08 07/28/24 15:20 Temperature 97.4 F L 98.8 F Pulse Rate 75 75 84 Respiratory Rate 16 16 16 Blood Pressure 110/67 112/67 113/66 Pulse Oximetry 99 97 95 Oxygen Delivery Room Air Simple Face Mask Nasal Cannula Oxygen Flow Rate 8 2 07/28/24 15:35 07/28/24 15:50 07/28/24 16:05 Temperature Pulse Rate 85 81 82 Respiratory Rate 14 14 12 Blood Pressure 120/74 120/74 129/75 Pulse Oximetry 95 94 93 Oxygen Delivery Nasal Cannula Nasal Cannula Nasal Cannula Oxygen Flow Rate 2 2 2 07/28/24 16:20 07/28/24 16:35 07/28/24 16:55 Temperature 98.2 F Pulse Rate 82 79 74 Respiratory Rate 14 18 18 Blood Pressure 121/79 127/75 131/70 Pulse Oximetry 93 94 98 Oxygen Delivery Nasal Cannula Nasal Cannula Oxygen Flow Rate 2 2 07/28/24 17:23 07/28/24 18:23 07/28/24 18:44 Temperature 98.1 F 98.1 F Pulse Rate 82 70 77 Respiratory Rate 18 18 18 Blood Pressure 117/68 117/68 126/72 Pulse Oximetry 97 97 100 Oxygen Delivery Oxygen Flow Rate 07/28/24 22:23 07/28/24 20:00 07/29/24 02:23 Temperature 98.2 F 98.7 F Pulse Rate 82 79 Respiratory Rate 18 18 Blood Pressure 131/70 111/56 L Pulse Oximetry 98 96 Oxygen Delivery Room Air Oxygen Flow Rate 07/29/24 05:57 07/29/24 06:03 Temperature 98.5 F 98.5 F Pulse Rate 75 75 Respiratory Rate 18 18 Blood Pressure 110/51 L 110/51 L Pulse Oximetry 97 97 Oxygen Delivery Oxygen Flow Rate Intake/Output Intake
[2024-07-29 08:41] VITALS: RESP 18; O2SAT 97
[2024-07-29] MEDS: CELECOXIB 200 MG CAPSULE PO (08:41)
[2024-07-29] MEDS: APIXABAN 2.5 MG TABLET PO (08:41)
[2024-07-29] MEDS: FAMOTIDINE 20 MG TABLET PO (08:41)
[2024-07-29] MEDS: CHOLECALCIFEROL 1,000 UNITS TABLET 1000 UNITS PO (08:41)
[2024-07-29] MEDS: SENNA/DOCUSATE SODIUM TABLET 2 TAB PO (08:41)
[2024-07-29] MEDS: polyethylene glycoL 3350 17 GM POWD.PACK PO (08:42)
[2024-07-29] MEDS: VANCOMYCIN 1,000 MG/NS 250 ML 1,000 MG/250 ML BAG 250 MG IVPB (09:36)
[2024-07-29 10:23] VITALS: BP 116/62; PULSE 83; RESP 16; TEMP 36.9; O2SAT 97
--- NOTE | 2024-07-29 10:24 | PM.PNORT ---
Subjective Subjective Date/Time Seen: 07/29/24 10:24 Interval history: Postop day 1 patient is alert. She is afebrile vital signs are stable. Pain is very well controlled. She has been up to the restroom multiple times overnight. She is having no nausea. Overall she feels she is doing very well. Dressing is dry and intact. Neurovascularly she is intact. Very mild swelling in the knee itself. Plan to be to have the patient work with therapy this morning and again this afternoon once IV antibiotics have been completed and patient continues do well she will be discharged home this afternoon. Objective Data Vital Signs Vital Signs: Vital Signs - 24 hr 07/28/24 15:08 07/28/24 15:20 07/28/24 15:35 Temperature 98.8 F Pulse Rate 75 84 85 Respiratory Rate 16 16 14 Blood Pressure 112/67 113/66 120/74 Pulse Oximetry 97 95 95 Oxygen Delivery Simple Face Mask Nasal Cannula Nasal Cannula Oxygen Flow Rate 8 2 2 07/28/24 15:50 07/28/24 16:05 07/28/24 16:20 Temperature Pulse Rate 81 82 82 Respiratory Rate 14 12 14 Blood Pressure 120/74 129/75 121/79 Pulse Oximetry 94 93 93 Oxygen Delivery Nasal Cannula Nasal Cannula Nasal Cannula Oxygen Flow Rate 2 2 2 07/28/24 16:35 07/28/24 16:55 07/28/24 17:23 Temperature 98.2 F Pulse Rate 79 74 82 Respiratory Rate 18 18 18 Blood Pressure 127/75 131/70 117/68 Pulse Oximetry 94 98 97 Oxygen Delivery Nasal Cannula Oxygen Flow Rate 2 07/28/24 18:23 07/28/24 18:44 07/28/24 22:23 Temperature 98.1 F 98.1 F 98.2 F Pulse Rate 70 77 82 Respiratory Rate 18 18 18 Blood Pressure 117/68 126/72 131/70 Pulse Oximetry 97 100 98 Oxygen Delivery Oxygen Flow Rate 07/28/24 20:00 07/29/24 02:23 07/29/24 05:57 Temperature 98.7 F 98.5 F Pulse Rate 79 75 Respiratory Rate 18 18 Blood Pressure 111/56 L 110/51 L Pulse Oximetry 96 97 Oxygen Delivery Room Air Oxygen Flow Rate 07/29/24 06:03 07/29/24 08:35 07/29/24 08:41 Temperature 98.5 F Pulse Rate 75 Respiratory Rate 18 18 Blood Pressure 110/51 L Pulse Oximetry 97 97 Oxygen Delivery Room Air Room Air Oxygen Flow Rate Intake/Output Intake/Output: Intake & Output 07/26/24 07/27/24 07/28/24 07/29/24 23:59 23:59 23:59 23:59 Intake Total 1470 555 Output Total 400 700 Balance 1070 -145 Meds/Results Medications: Active Medications Generic Name Dose Route Start Last Admin Trade Name Freq PRN Reason Stop Dose Admin Acetaminophen 650 mg 07/28/24 17:00 07/29/24 08:40 Acetaminophen 325 Mg Tablet PO 650 mg Q4HR YOSVANY Administration Apixaban 2.5 mg 07/29/24 09:00 07/29/24 08:41 Apixaban 2.5 Mg Tablet PO 08/09/24 21:01 2.5 mg Q12HR YOSVANY Administration Cefdinir 300 mg 07/29/24 21:00 Cefdinir 300 Mg Capsule PO Q12HR YOSVANY Celecoxib 200 mg 07/29/24 08:00 07/29/24 08:41 Celecoxib 200 Mg Capsule PO 200 mg DAILY@0800 YOSVANY Administration Diphenhydramine HCl 25 mg 07/28/24 16:38 Diphenhydramine Hcl Inj 50 Mg/Ml Vial IV PUSH Q6H PRN Itching Famotidine 20 mg 07/28/24 21:00 07/29/24 08:41 Famotidine 20 Mg Tablet PO 20 mg Q12HR YOSVANY Administration Cefazolin Sodium 2 gm in 50 mls @ 100 mls/hr 07/28/24 20:00 07/29/24 04:53 Ancef 2 Gm/D5w 50 Ml IVPB 07/29/24 12:29 Infused Q8H YOSVANY Infusion Vancomycin HCl 1,000 mg in 250 mls @ 250 mls/hr 07/28/24 22:00 07/29/24 09:42 Vancomycin 1,000 Mg/Ns 250 Ml IVPB 07/29/24 10:59 200 mls/hr Q12H YOSVANY Infusion Morphine Sulfate 2 mg 07/28/24 16:38 Morphine Sulfate (*Crx) 2 Mg/Ml Inj IV PUSH Q2H PRN Breakthrough Pain Rated 4-6 or NPO Naloxone HCl 0.1 mg 07/28/24 16:38 Naloxone Hcl 0.4 Mg/Ml Vial IV PUSH Q2M PRN Opiate Reversal Ondansetron HCl 4 mg 07/28/24 16:38 Ondansetron Inj 4 Mg/2 Ml Vial IV PUSH Q4H PRN Nausea And Vomiting Oxycodone HCl 5 mg 07/28/24 17:00 07/29/24 08:41 Oxycodone Hcl (*Crx) 5 Mg Tab Ir PO
--- NOTE | 2024-07-29 10:28 | PM.DS ---
DS: Admitting Diagnosis Discharge Date 07/29 Admitting Diagnosis Left knee DJD DS: Discharge Diagnosis Discharge Diagnosis (1) History of total left knee replacement: Code(s): Z96.652 - Presence of left artificial knee joint Status: Acute DS: Summary Hospital Course Hospital Course: 69-year-old female who underwent left total knee arthroplasty on 07/28. Underwent the procedure without complications. Postoperatively she has been afebrile vital signs are stable. She is weight-bearing as tolerated. She was up walking to the restroom the evening of surgery. Pain overall is very well controlled. She is on scheduled Tylenol every 4 hours and oxycodone 5 mg. She is on Eliquis for DVT prophylaxis. Patient be discharged home on 07/29. She will go home with a 1 week course of Omnicef. She is also on Celebrex 200 mg once a day. She will also be prescribe Senokot and MiraLax for constipation. Patient was advised to keep the leg elevated at home to prevent swelling. She was also advised to do her exercises for her knee every hour while awake. She has outpatient therapy starting on Thursday. Patient was advised any questions or concerns she is to call the office. Labs on the morning of postop day 1 reviewed. They were all within normal limits. Time Spent with Patient Time attestation: Total time spent providing and/or coordinating discharge services: DS: Data Data Completed and Pending Labs on day of discharge: Labs from last 24 hours 07/29/24 07/28/24 05:11 09:44 WBC 11.9 H RBC 3.85 L Hgb 11.9 L Hct 36.1 L MCV 93.8 MCH 30.9 MCHC 33.0 RDW 12.3 Plt Count 150 MPV 10.9 H Immature Gran % (Auto) 0.7 H Neut % (Auto) 84.8 H Lymph % (Auto) 7.2 L [place] % (Auto) 7.0 Eos % (Auto) 0.0 Baso % (Auto) 0.3 Lymph # (Auto) 0.86 L [place] # (Auto) 0.8 H Eos # (Auto) 0.0 Baso # (Auto) 0.0 Abs Immat Gran (auto) 0.08 H Absolute Neuts (auto) 10.1 H Absolute Nucleated RBC 0.000 Nucleated RBC % 0.0 Sodium 133 L Potassium 4.2 Chloride 101 Carbon Dioxide 25 Anion Gap 7 BUN 17 Creatinine 0.70 Estim Creat Clear Calc 72 Estimated GFR > 60 Glucose 121 H Calcium 9.2 Blood Type O Negative Antibody Screen Negative Discharge Plan Discharge Patient Disposition: Home, Self-Care Discharge Instructions: CAMI SOUSA M.D [facility] [address] [address] [address] [place] [address] POST-OPERATIVE DISCHARGE INSTRUCTIONS TOTAL KNEE ARTHROPLASTY 1. When resting, do not rest in the chair.When resting, lie on your back, with back flat on the couch or bed, with leg elevated above heart to minimize swelling. You may put a pillow under your head. . Significant swelling could indicate a blood clot and if this occurs call the office (or go to the ER) to have a venous ultrasound. Therefore, do not rest in a chair. 2. At least five times a day spend several minutes stretching your knee into flexion while sitting in the chair and also stretching your knee out straight The abilities to bend your knee fully and straighten your knee fully are two most important knee functions to focus on during your recovery. 3. It is ok to sit in chair to eat, use the toilet and receive a guest and to do your stretching exercises, but, sitting in a chair will cause your leg to swell. Therefore, avoid additional time sitting in the chair. and don't rest in the chair. 4. Wound Care: Nursing will give you an additional Mepilex dressing at the time of discharge. Patient to remove the dressing and apply a new Mepilex dressing at home 7 days after surgery and leave the dressing on until seen in office. It is normal to see a small amount of blood on the silver pad of the Mepilex dressing. Its designed to hold small spots of blood. However, if the blood reaches the edge of the pad up to the boarder of the clear membrane that surrounds the pad, the pad i
== END 2024-07-29 14:15 | disposition home or self-care (01) ==
LOC: ANHSURGERY 09:17 → ANH2MED 16:44
PROVIDERS: Physician Assistant Surgical; PCP Family Medicine; Visit Provider Orthopaedic Surgery
PROC: (CPT 27447; principal; 2024-07-28 11:30)
DX: M17.0 Bilateral primary osteoarthritis of knee (principal); E66.9 Obesity, unspecified; Z68.38 Body mass index [BMI] 38.0-38.9, adult; G47.33 Obstructive sleep apnea (adult) (pediatric); Z99.89 Dependence on other enabling machines and devices
CPT/HCPCS: 27447; 20610; 36415; 73560; 80048; 80307; 82040; 85025; 86850; 86900; 86901; 87081; 93005; 97110; 97116; 97161; 97165; 97530; 97535; A9270; C1713; C1776; J0171; J0360; J0690; J1010; J1100; J1170; J1885; J2270; J2405; J2704; J2795; J3010; J3370; J7120

== ENCOUNTER 2024-08-31 08:15 | Outpatient (RCR) | payer MEDICARE, SELFPAY ==
--- NOTE | 2024-08-01 09:22 | OPREHPOC ---
Outpatient Therapy Plan of Care This is a Multidisciplinary Plan of Care that may contain components documented by all disciplines (PT, OT, and ST.) PT Problem 1 PT Problem #1 Knowledge Deficit PT Goal 1 Goal / Goal Update Banks with HEP Target Visit 4 PT Problem 2 PT Problem #2 Pain PT Goal 1 Goal / Goal Update Report pain no greater than 2/10 with chair flexion strength to improve soft tissue mobility tolerance. Target Visit 4 PT Problem 3 PT Problem #3 Impaired Range of Motion PT Goal 1 Goal / Goal Update Achieve terminal knee extension to improve terminal range of gait to even stride length and achieve independent gait. Target Visit 10 PT Goal 2 Goal / Goal Update Achieve 125 degrees of L knee flexion for improved foot clearance and stair navigation Target Visit 10 PT Problem 4 PT Problem #4 Impaired Functional Mobil PT Goal 1 Goal / Goal Update Demonstrate 30% improvement in LEFS for improve function and quality of life with ADL performance Target Visit 10 PT Problem 5 PT Problem #5 Edema PT Goal 1 Goal / Goal Update Demonstrate 2 cm+ reduction in joint line edema for indications of soft tissue healing Target Visit 10
--- NOTE | 2024-08-01 09:23 | PTOPEVAL1 ---
Assessment and note entered by Himanshu Jessica, PT Evaluation Information Assessment Status Evaluation Diagnosis s/p L TKA ICD-10 Condition Codes (PT) Pain in left knee M25.562 Onset 07/28/24 Subjective Information Reports that she has been doing her stretches regularly. She is not having difficulty with anything outside of heel slides at this time. She has lost over 50 lbs since last October and has been anxious to get back to her exercise activity. She is taking pain medication regularly still. Reports that she is sleeping well overall. She is a side sleeper but cannot sleep on her side. Reported Pain Level Pain Score 6: Self Report Assessment PT Clinical Summary Patient presents with signs and symptoms consistent with post operative total knee arthroplasty. Presents with edema, weakness, loss of ROM, and altered gait. Patient appears highly motivated and is on the appropriate track to recovery. 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 Plan of Care Interventions Electrical Stimulation,Gait Training,Intermittent Compression,Manual Therapy,Neuro Re-education, Therapeutic Activities,Therapeutic Exercise PT Services Indicated Yes Treatment Frequency and 2x/week for 10 visits Duration These treatments will address the objective and functional deficits as defined above. The patient will be advanced safely and appropriately in order for the patient to progress towards his/her prior level of function. Additional exercises will be introduced and as well as a comprehensive home exercise program upon discharge, if needed, ?to ensure carryover of functional gains achieved in the clinic. This treatment plan has been reviewed and agreement upon by the patient.
--- NOTE | 2024-08-31 08:55 | PTOPDC ---
Assessment and note entered by Tigist Pinto, PT Discharge Report Assessment Status Discharge Diagnosis s/p L TKA ICD-10 Condition Codes (PT) Pain in left knee M25.562 Onset 07/28/24 Subjective Information knee is doing great; have returned to work half days; only thing giving me trouble is putting all weight on L and going down the stairs; no longer using cane; have returned to swimming and doing the knee exercises 2-3x/day; see the dr next week. agree to d/c therapy. Reported Pain Level Pain Score Self Report Additional Pain Score Comments pain range in the past week 0-6/10; take prescription meds for sleeping every night and PRN during day pain increase: end of day, more activity still have swelling in the knee with sleeping, awaken due to pain in knee after ~ 5-6 hours of sleeping; tends to sleep on her side and cannot get comfortable position; educated on use of pillow between LE with side sleeping Assessment PT Clinical Summary Leslie has received 10 PT sessions. She has improved in all areas: now: pain rating 0-6/10; LE functional scale of 21% limitation in activity level; has returned to working 4-5 hours at time; doing her HEP and returned to swimming; edema decreased at joint line by 4.5 cm; ambulation without assistive device and good strength of L hip and knee. Education completed for HEP and balance of activity/rest. L knee ROM 0-110'; The goals were met, except pain range and knee flexion. Discharge PT services. She is to continue with her HEP and activity as tolerated. Plan of Care PT Services Indicated No
== END 2024-08-31 10:27 | disposition home or self-care (01) ==
LOC: ANHPT 08:15
PROVIDERS: PCP Family Medicine; Visit Provider Orthopaedic Surgery
DX: Z47.1 Aftercare following joint replacement surgery (principal); M17.12 Unilateral primary osteoarthritis, left knee; Z96.652 Presence of left artificial knee joint
CPT/HCPCS: 97016; 97110; 97116; 97140; 97161; 97530

== ENCOUNTER 2025-06-21 08:00 | Outpatient (RCR) | payer MEDICARE, SELFPAY ==
--- NOTE | 2025-05-16 10:03 | OPREHPOC ---
Outpatient Therapy Plan of Care This is a Multidisciplinary Plan of Care that may contain components documented by all disciplines (PT, OT, and ST.) PT Problem 1 PT Problem #1 Knowledge Deficit PT Goal 1 Goal / Goal Update *independent with HEP Target Visit 10 PT Problem 2 PT Problem #2 Pain PT Goal 1 Goal / Goal Update 1* pain rating of L hip/thigh pain at worst of 4/ 10 2* pt report with sleeping, awaken due to pain 1x/ night Target Visit 10 PT Problem 3 PT Problem #3 Impaired Strength PT Goal 1 Goal / Goal Update 1* increase strength of bilateral hip extension and abduction to 4+/5 single leg standing x 10 seconds with good stability 2* R 3* L 4* pt ambulate 300' without lateral motion of trunk Target Visit 10 PT Problem 4 PT Problem #4 Impaired Flexibility PT Goal 1 Goal / Goal Update increase flexibility of L hip, to be symmetrical to R: 1* anterior hip-quad with prone knee flexion 120' 2* hip IR 0' 3* hip abduction in supine 40' Target Visit 10
--- NOTE | 2025-05-16 10:03 | PTOPEVAL1 ---
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 LE functional self rating of 24% limitation in activity level. She reports radicular pain into L calf. Pain is awakening her from sleeping and increases with lying on her L side. She is very active, doing fitness exercises daily on land and in the water. History includes: back surgery in 1986, L TKR in Jul 2024 and R knee pain. With the evaluation: she has weakness over bilateral hip extension and abduction; decreased ROM of L hip IR and bilateral piriformis; 2 minute walking test distance was good; gait pattern with lateral trunk motions. Skilled PT services are indicated for modalities to decrease L hip pain; therapeutic exercises to increase hip strength and flexibility, with education for HEP and posture, body mechanics. Plan of Care Interventions Gait Training,Manual Therapy,Neuro Re-education, Patient/Caregiver Education,Therapeutic Activities ,Therapeutic Exercise,Ultrasound,Other Other Interventions taping PT Services Indicated Yes Treatment Frequency and 1-2x/wk for 10 visits Duration These treatments will address the objective and functional deficits as defined above. The patient will be advanced safely and appropriately in order for the patient to progress towards his/her prior level of function. Additional exercises will be introduced and as well as a comprehensive home exercise program upon discharge, if needed, ?to ensure carryover of functional gains achieved in the clinic. This treatment plan has been reviewed and agreement upon by the patient.
== END 2025-06-21 11:13 | disposition home or self-care (01) ==
LOC: ANHPT 08:00
PROVIDERS: PCP Family Medicine; Visit Provider Physician Assistant Surgical
DX: M70.62 Trochanteric bursitis, left hip (principal)
CPT/HCPCS: 97110; 97140; 97161; 97530

== ENCOUNTER 2025-09-27 14:04 | Outpatient (CLI) | payer MEDICARE, SELFPAY ==
--- NOTE | ~2025-09-27 | MM_ITS ---
EXAMINATION: MM screening [facility] BI w benjamin HISTORY: Screening TECHNIQUE: Craniocaudal and mediolateral oblique 3-D tomosynthesis images were obtained and synthetic 2-D images were generated. CAD analysis was submitted and interpreted. COMPARISON: Comparison to multiple prior studies sequentially, with oldest reviewed study dated 11/16/2014. BREAST PARENCHYMAL COMPOSITION: Not Dense: There are scattered areas of fibroglandular density. FINDINGS: There is no evidence of suspicious mass, calcification, or architectural distortion to suggest malignancy in either breast. Scattered benign-appearing calcifications are present. IMPRESSION: 1. No mammographic evidence of malignancy. 2. Recommend routine screening mammography in one year. BI-RADS Category 2: Benign finding(s). Reviewed, dictated and finalized at location B. T OF SALE ASSOCIATE
--- OUTSIDE RECORDS SUMMARY | 2025-09-27 21:27 | XMS_ITS | Clinical Summary ---
Author Organization [facility] Address [address], [address] [address] Phone Care Team Providers Care Opto Mechanical Engineer Name Role Phone Brown Madrigal MD Primary Care Provider Allergies No known active allergies Medications diclofenac (VOLTAREN) 75 MG Tablet Delayed Response TAKE ONE TABLET TWICE DAILY NEEDED FOR PAIN 11 04/08/2018 Active atorvastatin (LIPITOR) 10 MG Tablet Take 5 mg by mouth daily. Active glucosamine-cho ndroitin 500-400 MG Capsule Take 1 Cap by mouth daily. Active Mometasone Furoate (NASONEX NA) by Nasal route Daily as needed. Active Cyanocobalamin (VITAMIN B-12 PO) Take 1 Tab by mouth daily. Active vitamin D (CHOLECALCIFERO L) 1000 UNIT Tablet Take 1,000 Units by mouth daily. Active Cetirizine HCl (ZYRTEC PO) Take by mouth Daily as needed. Active TURMERIC PO Take by mouth daily. Active fluticasone (FLONASE) 50 MCG/ACT Suspension 2 Sprays by Nasal route daily. Use in each nostril as directed. Active Family History Medical History Relation Name Comments Colon Polyps Brother Colon Polyps Father Diabetes Maternal Grandmother Chronic Obstructive Pulmonary Disease Mother Dementia Mother Diabetes Mother Stroke Mother Cancer Paternal Grandfather colon Relation Name Status Comments Brother Father Alive Maternal Grandmother Mother Paternal Grandfather Social History Tobacco Use Types Packs/Day Years Used Date Smoking Tobacco: Never Smokeless Tobacco: Never Alcohol Use Standard Drinks/Week Comments No 0 (1 standard drink = 0.6 oz pur e alcohol) Comments Unknown Sex and Gender Information Value Date Recorded Sex Assigned at Not on file Legal Sex Female 9:46 PM CDT Gender Identity Not on file Sexual Orientation Not on file Occupation Industry Job Start Date Job End Date [place] [employer] Not on file Not on zurdo e Not on file Last Filed Vital Signs Vital Sign Reading Time Taken Comments Blood Pressure 131/89 06/25/2018 9:07 AM CDT Pulse 70 06/25/2018 9:07 AM CDT Temperature 36 C (96.8 F) 06/25/2018 9:07 AM CDT Respiratory Rate 16 06/25/2018 9:07 AM CDT Oxygen Saturation 99% 06/25/2018 9:07 AM CDT Inhaled Oxygen Concentration - - Weight 120.2 kg (265 lb) 05/06/2018 9:00 AM CDT Height 157.5 cm (5' 2) 05/06/2018 9:00 AM CDT Body Mass Index 48.47 05/06/2018 9:00 AM CDT Plan of Treatment Health Maintenance Due Date Last Done Comments Hepatitis C Virus (HCV) Screening 1955 TdaP Immunization 1955 Varicella Immunization (1 of 2 - 13+ 2-dose series) 1969 Cologuard 2001 Immunochemical Fecal Occult Blood 2001 Pneumococcal Immunization (50+ years) (1 of 1 - PCV) 2006 Zoster Immunization (1 of 2) 2006 Influenza Immunization (#1) 07/10/202508/10, 07/25/2018, 08/11/2017, Additional history exists SARS-COV-2 Immunization (2024- season) 2025 09/23/2021, 01/29/2021, 12/19/2020 Colonoscopy 06/25/2028 06/25/2018, 11/19/2009 Colorectal Cancer Screening 06/25/2028 Respiratory Syncytial Virus (RSV) Immunization (Adult) (1 - 1-dose 75+ series) 2031 Hepatitis B Immunization Aged Out No longer eligible based on patient's age to complete this topic Human Papillomavirus (HPV) Immunization Aged Out No longer eligible based on patient's age to complete this topic Meningococcal Immunization (ACWY) Aged Out No longer eligible based on patient's age to complete this topic Rotavirus Immunization Aged Out No lo nger eligible based on patient's age to complete this topic Procedures Procedure Name Priority Date/Time Associated Diagnosis Comments COLONOSCOPY Routine 11/19/2009 from Last 3 Months or Most Recently Relevant to Health Maintenance Results * COLONOSCOPY (11/19/2009) us Not On File Provider PROCEDURE/MINOR SURGICAL OR DERABLES Final Result from Last 3 Months or Most Recently Relevant to Health Maintenance Care Teams Opto Mechanical Engineer Relationship Specialty Start Date End Date Brown Madrigal MD [address] [id number] PCP - General Family Medicine 03/11/18
== END 2025-09-27 14:05 | disposition home or self-care (01) ==
LOC: ANHFOHIMG 14:08
PROVIDERS: PCP Family Medicine; Visit Provider Family Medicine
DX: Z12.31 Encounter for screening mammogram for malignant neoplasm of breast (principal)
CPT/HCPCS: 77063; 77067

== ENCOUNTER 2025-11-06 08:44 | Outpatient (CLI) | payer MEDICARE, SELFPAY ==
--- NOTE | ~2025-11-06 | MR_ITS ---
EXAMINATION: MR cervical spine wo con DATE: 11/06/2025 09:53 INDICATION: Radiculopathy, cervical region. TECHNIQUE: Magnetic resonance imaging (MRI) of the cervical spine was performed without intravenous contrast. COMPARISON: None FINDINGS: There is hypolordosis of cervical spine. Vertebral body heights are normal. There is moderately decreased disc height at C4-C5 and C5-C6, mildly decreased disc height at C6-C7, and moderately decreased disc height at C7-T1. The spinal cord signal intensity is normal. The following disc levels are specifically discussed: C2-C3: There is a central protrusion. There is mild right uncovertebral joint osteoarthritis. There is severe bilateral facet joint osteoarthritis. There is mild right neural foraminal stenosis. There is mild central canal stenosis. C3-C4: The disc is bulging. There is moderate bilateral uncovertebral joint osteoarthritis. There is severe right and moderate left facet joint osteoarthritis. There is mild bilateral neural foraminal stenosis. There is mild central canal stenosis. C4-C5: The disc is bulging. There is severe bilateral uncovertebral joint osteoarthritis. There is moderate right and severe left facet joint osteoarthritis. There is mild right and moderate left neural foraminal stenosis. There is mild central canal stenosis. C5-C6: The disc is bulging. There is severe bilateral uncovertebral joint osteoarthritis. There is severe bilateral facet joint osteoarthritis. There is moderate right and mild left neural foraminal stenosis. There is mild central canal stenosis. C6-C7: The disc is bulging. There is moderate bilateral uncovertebral joint osteoarthritis. There is mild bilateral facet joint osteoarthritis. There is mild bilateral neural foraminal stenosis. There is mild central canal stenosis. C7-T1: The disc is bulging. There is severe bilateral uncovertebral joint osteoarthritis. There is severe bilateral facet joint osteoarthritis. There is mild bilateral neural foraminal stenosis. There is mild central canal stenosis. IMPRESSION: 1. Severe cervical spondylosis. Reviewed, dictated and finalized at location E. SACKER
--- NOTE | ~2025-11-06 | MR_ITS ---
EXAMINATION: MR brain/brain stem wo con DATE: 11/06/2025 09:43 INDICATION: Trigeminal neuralgia. Headache. TECHNIQUE: Magnetic resonance imaging (MRI) of the brain and brainstem was performed without intravenous contrast. COMPARISON: None. FINDINGS: There are scattered areas of nonspecific increased T2-weighted signal intensity in the cerebral white matter, which is within normal limits for the patient's age. There is no intracranial hemorrhage, acute infarction, or abnormal intracranial mass lesion. The ventricles are normal in size. The paranasal sinuses are clear. The orbits are normal. The mastoid air cells are normal. The trigeminal nerves are normal. No vascular loop compression. IMPRESSION: 1. Normal aging brain. Reviewed, dictated and finalized at location E. OGRAPHY MANAGER IMPRESSION: 1. Normal aging brain.
== END 2025-11-06 08:45 | disposition home or self-care (01) ==
PROVIDERS: PCP Family Medicine; Visit Provider Family Medicine
DX: G50.0 Trigeminal neuralgia (principal); M47.892 Other spondylosis, cervical region
CPT/HCPCS: 70551; 72141